=== PATIENT | female | born 1965 | race Caucasian/White ===

== ENCOUNTER 2018-06-03 09:46 | Inpatient (IN) | payer BC ==
[~2018-06-03] VITALS: Ht 152.4 cm; Wt 88.9 kg
[2018-06-03 09:50] VITALS: Ht 152.4 cm; Wt 88.9 kg
--- NOTE | 2018-06-03 10:11 | NUR ---
PATIENT PRESENTS TO ED WITH C/O ITCHINESS SINCE 15 MINUTES DEPOSITION REPORTER. STS THAT SHE TOOK SOME DAYQUIL AND STARTED FEELING ITCHY. DENIES SOB, BREATHING IS E/U, BILATERAL CHEST RISE. PATIENT IS SEEN ITCHING AT BEDSIDE. AWAITING MSE
--- NOTE | 2018-06-03 11:45 | NUR ---
PT STS SHE IS ITCHY, STS HAVING NO PAIN. BP 80/51, NOTIFIED PA OF LOW BP.
--- NOTE | 2018-06-03 12:15 | NUR ---
PT RESTING AT BEDSIDE IN NAD.
[2018-06-03] MEDS ORDERED: LIPI20 (12:18)
[2018-06-03] MEDS ORDERED: LISINOPRIL2.5 MG (12:18)
[2018-06-03] MEDS ORDERED: MELOXICAM7.5 M1 (12:19)
[2018-06-03] MEDS ORDERED: GLIPIZIDE2.5 M1 (12:19)
[2018-06-03] MEDS ORDERED: GOOD SENSE ASPI81 M3 PO (12:19)
[2018-06-03] MEDS ORDERED: GOOD SENSE OMEP20 MG (12:19)
[2018-06-03] MEDS ORDERED: PHARMASSURE FO0.4 MG (12:19)
[2018-06-03] MEDS ORDERED: METFORMIN HYDR500 M1 (12:19)
--- NOTE | 2018-06-03 12:51 | NUR ---
REPORT OFF TO TAMARA SANCHEZ
[2018-06-03 13:47] VITALS: BP 122/66
--- NOTE | 2018-06-03 13:56 | NUR ---
RECEIVED PATIENT AWAKE AND ABLE TO MAKE NEEDS KNOWN. AT [facility] AND SUPPORVE WITH CARE. PATIENT HAS BEEN WORKING A DAIRY AND HAD BEEN SITTIGN IN THE OFFICE WHEN SHE STARTED TO ITCH. SHE WENT TO GET BENADRYL FO RTHIS AND SHE BECAME WORSE AND CAME TO THE ER. SHE STATES SHE TOOK DAYQUIL AT HOME AND SHE HAS TAKEN JPRIOR. THE PATIENT WAS GIVEN BENADRYL, SOLUMEDROL, EPI AND PEPCID IN THE ER AND NOTED THE PATIENT HAS SWELLING TO THE FACE AND ITCHING STILL NOTED. PATIENT HAS DIMINISHED BREATH SOUNDS AND STATES SHE TOOK DAYQUIL DUE TO COUGHING AND COLD SYMPTOSM. SHE HAS DENIES ANY CONTACT WITH CHEMICALS OR SPIDERS. SHE HAS NO SIGNS OF ANY BITES. SHE HAS HAD SOME RELIEF FROM THE BENADRYL AND SOLUMEDROL BUT IS NOW HAVING THE SYMPTOMS RETURN. PATIENT ON IV FLUIDS AND HAD A BOLUS IN THE ER. PATIENT IS AMBULATORY AND DENIES PAIN BUT STATES SOME STIFFNESS TO THE NECK AND SHOULDERS SHE HAS HAD SOB BUT IS CLEARING NOW. WILL CONTINUE PRESENT PLAN OF CARE.
[2018-06-03 17:56] LABS: PLATELET COUNT 248 x10^3mcL (130-400)
[2018-06-03 18:03] LABS: CALCIUM 8.3 mg/dL (8.5-10.1); CARBON DIOXIDE 25.8 mmol/L (21-32); CHLORIDE SERUM 104 mmol/L (98-107); CREATININE SERUM 0.9 mg/dL (0.6-1.0); GFR1 > 60 mL/min; GLUCOSE SERUM 289 mg/dL (74-106); POTASSIUM SERUM 4.5 mmol/L (3.5-5.1); SODIUM SERUM 140 mmol/L (136-145)
[2018-06-03 18:11] LABS: BASOPHIL % 0 % (0-2); RED CELL DISTRIBUTION WIDTH 15.5 % (11.5-14.5)
--- NOTE | 2018-06-03 18:44 | NUR ---
PATIENT HAS TOLERATED THE DIET AND ORDER FOR XRAY OF THE CHEST, CBC, UA AND BMP.
[2018-06-03 18:56] VITALS: BP 130/65
--- NOTE | 2018-06-03 19:40 | NUR ---
RECEIVED PT FROM DAY SHIFT RN. PATIENT AA&O X4. SITTING UP IN BED. NS RUNNING AT 50 CC/HR. IV TO LFA PATENT, CLEAN, DRY, AND INTACT. NO COMPLAINTS OF SOB OR CHEST PAIN AT THIS TIME. PT LUNG SOUNDS ARE CLEAR AND DIMINISHED IN THE BASES UPON AUSCULATAION. PT HAS NOT COMPLAINTS OF RESPIRATORY DISTRESS ON ROOM AIR AT THIS TIME. TELE#[id number]. WILL CONTINUE TO MONITOR.
[2018-06-03 21:29] VITALS: BP 122/68
--- NOTE | 2018-06-03 21:32 | NUR ---
PT NAME BAND SHOWED INCORRECT DATE WHEN ASKED AT BEDSIDE. CHARGE NURSE NOTIFIED.
--- NOTE | 2018-06-04 03:08 | NUR ---
PT RESTING IN BED. NO FACIAL GRIMMACING OR APPARENT SIGNS OF DISTRESS AT THIS TIME. NO SIGNS OF SOB OR CHEST PAIN NOTED. NS RUNNING AT 50 ML/HR.
[2018-06-04 05:43] VITALS: BP 137/72
--- NOTE | 2018-06-04 06:20 | NUR ---
PT C/O PAIN ON HER IV SITE AT THE RTFA. NO REDNESS OR SWELLING NOTED . IV REMOVED. STARTED NEW IV ON THE RT HAND.PT TOLERATED PROCEDURE WELL.
[2018-06-04 06:24] LABS: PLATELET COUNT 247 x10^3mcL (130-400)
[2018-06-04 06:37] LABS: CALCIUM 8.4 mg/dL (8.5-10.1); CARBON DIOXIDE 25.3 mmol/L (21-32); CHLORIDE SERUM 106 mmol/L (98-107); CREATININE SERUM 0.5 mg/dL (0.6-1.0); GFR1 > 60 mL/min; GLUCOSE SERUM 239 mg/dL (74-106); POTASSIUM SERUM 4.1 mmol/L (3.5-5.1); SODIUM SERUM 140 mmol/L (136-145)
--- NOTE | 2018-06-04 06:46 | NUR ---
PT AWAKE IN BED. AA&O X4. PT IS RESTING IN BED. NS 50 ML/HR RUNNING THROUGH IV R HAND 22G. NO SOB OR CHEST PAIN REPORTED AT THIS TIME. NO COMPLAINTS OF PAIN AT THIS TIME. SIDE RAILS UP AND CALL LIGHT IS WITHIN REACH. WILL ENDORSE TO THE DAY SHIFT RN.
[2018-06-04 06:50] LABS: BASOPHIL % 0 % (0-2); RED CELL DISTRIBUTION WIDTH 16.3 % (11.5-14.5)
--- NOTE | 2018-06-04 08:00 | NUR ---
ALERT AND ORIENTED. SITTING UP IN BED. BREATHING FREELY ON RA. DEEP COUGH NOTED. SMALL AMT SECRETIONS. LUNG SOUNDS CLEAR. DENIES PAIN. SAYS SHE HAS OCC ITCHINESS. NS INFUSING 50 CC HOUR. INDEPENDENT W AL'S. EDEMA AROUND ORBITS. CALL LIGHT WITHIN REACH.
[2018-06-04 08:37] VITALS: BP 137/72
[2018-06-04 08:50] VITALS: BP 140/77
[2018-06-04 09:20] LABS: microscopic required? NO
[2018-06-04 10:17] LABS: urine erythrocyte NEGATIVE (NEGATIVE)
[2018-06-04 12:15] VITALS: BP 153/83
[2018-06-04 16:15] VITALS: BP 139/71
--- NOTE | 2018-06-04 19:10 | NUR ---
RECEIVED PT IN BED RESTING WITH FAMILY AT BEDSIDE. NO DISTRESS NOTED. DENIES ANY PAIN AT THIS TIME. IV SITE PATENT AND INTACT. BED IN LOWEST POSITION,CALL LIGHT WITHIN REACH. WILL CONTINUE TO MONITOR.
--- NOTE | 2018-06-04 19:39 | NUR ---
RSTING COMFORTABLY WITH FAMILY AT BEDSIDE. MANY VISITORS TODAY. ALSO SEN BY DR. ASHER WHO RECCOMENDED PT SEE AN FLORICULTURE PROFESSOR. NO C/O PAIN. VSS. NS INFUSING 50 CC HOUR. CONTNUES WITH SOLUMEDROL AND RT PROTOCOL. CALL LIGHT WITHIN REACH. INDEPENDENT W ADL'S.
--- NOTE | 2018-06-05 05:15 | NUR ---
PT APPEARS TO BE SLEEPING. NO DISTRESS NOTED.DENIES ANY PAIN AT THIS TIME. BED IN LOWEST POSITION,CALL LIGHT WITHIN REACH. WILL CONTINUE TO MONITOR.
[2018-06-05 06:03] VITALS: BP 148/84; BP 173/93
[2018-06-05 06:24] LABS: PLATELET COUNT 265 x10^3mcL (130-400)
[2018-06-05 06:30] LABS: BASOPHIL % 0 % (0-2)
--- NOTE | 2018-06-05 07:22 | NUR ---
CARE ENDORSED TO DAY NURSE BARBARA.
[2018-06-05 07:24] LABS: CARBON DIOXIDE 27.3 mmol/L (21-32); CHLORIDE SERUM 106 mmol/L (98-107); CREATININE SERUM 0.6 mg/dL (0.6-1.0); GFR1 > 60 mL/min; GLUCOSE SERUM 216 mg/dL (74-106); MAGNESIUM 2.4 mg/dL (1.8-2.4); POTASSIUM SERUM 4.4 mmol/L (3.5-5.1); SODIUM SERUM 142 mmol/L (136-145)
--- NOTE | 2018-06-05 08:00 | NUR ---
ALERT AND ORIENTED. BREATHING FREELY ON RA. CONTINUES ON RT PROTOCOL. HARD COUGH PRODUCES LITTLE SECRETIONS. NS INFUSING 50 CC HOUR.DENIES ANY PAIN. GOOD APPETITE WITH BREAKFAST. INDEPENDENT W ADL'S. EDEMA RESOLVED AROUND EYES. DENIES ANY ITCHINESS. CALL LIGHT WITHIN REACH. TELE # [id number] NSR.
[2018-06-05] MEDS ORDERED: EPIPEN JR 20.5 MG/ML IM (08:35)
[2018-06-05] MEDS ORDERED: PREDNISONE20 MG PO (08:35)
[2018-06-05] MEDS ORDERED: AEROECLIPSE II1 EACH MC (08:35)
[2018-06-05] MEDS ORDERED: BREO ELLIPTA1 PO1 IH (08:35)
[2018-06-05] MEDS ORDERED: ALBUTEROL SULFAT0.51 NEB (08:35)
[2018-06-05] MEDS ORDERED: LEVAQUIN750 MG PO (08:35)
[2018-06-05] MEDS ORDERED: ATA25 PO (08:37)
[2018-06-05 09:11] VITALS: BP 148/84
[2018-06-05] MEDS ORDERED: NOR5 PO (09:13)
[2018-06-05] MEDS ORDERED: COZ25 PO (09:13)
[2018-06-05 09:45] VITALS: BP 160/78
--- NOTE | 2018-06-05 10:53 | NUR ---
DC'D TO HOME. PT DRIVING HERSELF. TELE # 24 RETURNED TO TELE STATION. IV DC'D TO RT HAND. NEW PRESCSRIPTIONS GIVEN. F/U AYAAN WITH DR. CAIO LUCAS GIVEN. ALL DC INSTRUCTIONS REVIEWED WITH AND SIGNED BY PT.
== END 2018-06-05 11:05 | disposition home or self-care (01) | DRG 202 ==
LOC: ED 09:46 → DU 12:24 → EDBD 12:24 → DU 13:19
PROVIDERS: ADMIT Internal Medicine
DX: J45.901 Unspecified asthma with (acute) exacerbation (principal); K57.32 Diverticulitis of large intestine without perforation or abscess without bleeding; T88.6XXA Anaphylactic reaction due to adverse effect of correct drug or medicament properly administered, initial encounter; F41.9 Anxiety disorder, unspecified; I10 Essential (primary) hypertension; K21.9 Gastro-esophageal reflux disease without esophagitis; I95.9 Hypotension, unspecified; K74.60 Unspecified cirrhosis of liver; M19.90 Unspecified osteoarthritis, unspecified site; E11.9 Type 2 diabetes mellitus without complications; E66.9 Obesity, unspecified; K29.70 Gastritis, unspecified, without bleeding; T50.995A Adverse effect of other drugs, medicaments and biological substances, initial encounter; Y92.89 Other specified places as the place of occurrence of the external cause; M06.9 Rheumatoid arthritis, unspecified; Z79.84 Long term (current) use of oral hypoglycemic drugs
CPT/HCPCS: 82962; J0132; J0171; J1200; J1815; J2920; J2930; J3490; J7030; J7620; J7626

== ENCOUNTER 2019-02-10 15:38 | Emergency (ER) | payer BC ==
[~2019-02-10] VITALS: Ht 160 cm; Wt 85.7 kg
[~2019-02-10 15:38] MED LIST: AEROECLIPSE II1 EACH MC; ALBUTEROL SULFAT0.51 NEB; ATA25 PO; BREO ELLIPTA1 PO1 IH; COZ25 PO; EPIPEN JR 20.5 MG/ML IM; GLIPIZIDE2.5 M1; GOOD SENSE ASPI81 M3 PO; GOOD SENSE OMEP20 MG; LEVAQUIN750 MG PO; LIPI20; LISINOPRIL2.5 MG; MELOXICAM7.5 M1; METFORMIN HYDR500 M1; NOR5 PO; PHARMASSURE FO0.4 MG; PREDNISONE20 MG PO
[2019-02-10 15:47] VITALS: Ht 160 cm; Wt 85.7 kg
[2019-02-10 19:43] VITALS: BP 103/52
== END 2019-02-10 19:43 | disposition home or self-care (01) ==
LOC: ED 15:38
DX: R21 Rash and other nonspecific skin eruption (principal); L50.9 Urticaria, unspecified; I10 Essential (primary) hypertension; K21.9 Gastro-esophageal reflux disease without esophagitis
CPT/HCPCS: J0171; J2060; J2930; J3490